=== PATIENT | male | born 1995 | race Caucasian/White ===

== ENCOUNTER 2017-04-30 16:16 | Emergency (ER) | payer SELFPAY ==
[~2017-04-30] VITALS: Ht 177.8 cm; Wt 118.2 kg
[2017-04-30] MEDS ORDERED: PERTUSS(ACELL),DIPH,TET VAC/PF 0.5 ML VIAL IM ONE (17:00)
[2017-04-30] MEDS ORDERED: LIDOCAINE HCL 1% 10 ML VIAL INJ ONE (17:00)
[2017-04-30] MEDS ORDERED: SODIUM CHLORIDE 0.9% 250 ML IRRIG SOLUTION BOTTLE IRRIG ONE (17:00)
[2017-04-30] MEDS ORDERED: HYDROCODONE/ACETAMINOPHEN 5-325 MG TABLET PO ONE (17:00)
[2017-04-30] MEDS ORDERED: LIDOCAINE HCL/PF 1% 5 ML VIAL INJ ONE ×2 (17:30→17:45)
[2017-04-30 18:10] VITALS: BP 145/80
== END 2017-04-30 18:38 | disposition home or self-care (01) ==
LOC: EMS 16:19
DX: S61.012A Laceration without foreign body of left thumb without damage to nail, initial encounter (principal); W26.8XXA Contact with other sharp object(s), not elsewhere classified, initial encounter; Y93.89 Activity, other specified; Y92.89 Other specified places as the place of occurrence of the external cause; Y99.8 Other external cause status
CPT/HCPCS: 12002; 90471; 90715; 99283; J3490

== ENCOUNTER 2017-05-03 11:32 | Emergency (ER) | payer SELFPAY ==
[~2017-05-03] VITALS: Ht 177.8 cm; Wt 118.0 kg
[2017-05-03 12:24] VITALS: BP 145/89
== END 2017-05-03 13:06 | disposition home or self-care (01) ==
LOC: EMS 11:32
DX: Z48.00 Encounter for change or removal of nonsurgical wound dressing (principal); R03.0 Elevated blood-pressure reading, without diagnosis of hypertension
CPT/HCPCS: 99282

== ENCOUNTER 2017-05-10 13:04 | Emergency (ER) | payer SELFPAY ==
[~2017-05-10] VITALS: Ht 177.8 cm; Wt 122.7 kg
[2017-05-10 15:09] VITALS: BP 140/80
== END 2017-05-10 15:14 | disposition home or self-care (01) ==
LOC: EMS 13:06
DX: Z48.02 Encounter for removal of sutures (principal); R03.0 Elevated blood-pressure reading, without diagnosis of hypertension
CPT/HCPCS: 99281